=== PATIENT | male | born 1970 | race Caucasian/White ===

== ENCOUNTER 2017-10-26 16:39 | Inpatient (IN) | payer MEDICAID, OTHER ==
[~2017-10-26] VITALS: Ht 177.8 cm; Wt 100.0 kg
[~2017-10-26 16:39] MED LIST: AMLO2.5T2 PO; ENAL20TA75 PO; HYDR-3972 PO; TAMS0.4C32 PO
[2017-10-26] MEDS ORDERED: ketorolac trometh. 30mg/ml inj. IV ONE (16:45)
[2017-10-26] MEDS ORDERED: normal saline 1000ML IV soln IVB ONE (16:45)
[2017-10-26] MEDS ORDERED: ondansetron/PF 4mg/2ml inj IV ONE (16:45)
[2017-10-26 17:14] LABS: BASOPHILS % (AUTO) 0.2 % (0-1); EOSINOPHILS # (AUTO) 0.2 X10'3 (0-0.9); EOSINOPHILS % (AUTO) 1.7 % (0-6); HEMATOCRIT 44.2 % (42.0-52.0); HEMOGLOBIN 15.3 g/dl (14.0-17.9); LYMPHOCYTES # (AUTO) 0.9 X10'3 (1.1-4.8); LYMPHOCYTES % (AUTO) 7.4 % (21-51); MEAN CORPUSCULAR HEMOGLOBIN 31.5 PG (27.0-31.0); MEAN CORPUSCULAR HGB CONC 34.6 % (33.0-36.5); MEAN CORPUSCULAR VOLUME 90.9 FL (78-98); MEAN PLATELET VOLUME 7.8 FL (7.4-10.4); MONOCYTES # (AUTO) 0.6 X10'3 (0-0.9); MONOCYTES % (AUTO) 4.4 % (2-12); NEUTROPHILS # (AUTO) 10.9 X10'3 (1.8-7.7); NEUTROPHILS % (AUTO) 86.3 % (42-75); PLATELET COUNT 239 X10'3 (140-440); RED BLOOD COUNT 4.86 X10'6 (4.70-6.10); RED CELL DISTRIBUTION WIDTH 12.6 % (11.5-14.5); WHITE BLOOD COUNT 12.6 X10'3 (4.5-11.0)
[2017-10-26 17:28] LABS: ALBUMIN 3.8 G/DL (3.4-5.0); ALBUMIN/GLOBULIN RATIO 1.1 (1.1-1.5); ALKALINE PHOSPHATASE 94 IU/L (46-116); ANION GAP 8 (8-16); ASPARTATE AMINO TRANSFERASE 21 U/L (10-37); BILIRUBIN,TOTAL 0.5 MG/DL (0.1-1.0); BLOOD UREA NITROGEN 17 MG/DL (7-18); BUN/CREATININE RATIO 13.2 (5.4-32.0); CALCIUM 10.5 MG/DL (8.5-10.1); CHLORIDE 107 MMOL/L (99-107); CREATININE 1.29 MG/DL (0.60-1.10); GLUCOSE 132 MG/DL (70-104); LIPASE 217 U/L (73-393); POTASSIUM 3.9 MMOL/L (3.5-5.1); SODIUM 143 MMOL/L (135-145); TOTAL CARBON DIOXIDE 27.7 MMOL/L (24-32); TOTAL PROTEIN 7.4 G/DL (6.4-8.2); eGFR 59 ML/MIN
[2017-10-26 17:58] LABS: ALANINE AMINOTRANSFERASE 39 U/L (12-78)
[2017-10-26 18:14] LABS: CLARITY,URINE SLIGHTLY CLOUDY (Clear); COLOR,URINE YELLOW (Yellow); GLUCOSE, URINE NEGATIVE (Neg); KETONES,URINE NEGATIVE (Neg); LEUKOCYTE ESTERASE ,URINE SMALL (Neg); NITRITES, URINE NEGATIVE (Neg); OCCULT BLOOD,URINE MODERATE (Neg); PH,URINE 7.5 (4.8-8.0); PROTEIN,URINE TRACE mg/dl (Neg)
[2017-10-26 18:15] LABS: UA COLLECTION TYPE URINAL
[2017-10-26 18:23] LABS: BACTERIA,URINE FEW /HPF (Neg); SQUAMOUS EPITHELIAL CELL,UR FEW /LPF (FEW)
[2017-10-26 18:24] LABS: AMORPHOUS PHOSPHATES 1+
[2017-10-26] MEDS ORDERED: ENAL20TA75 PO (18:30)
[2017-10-26] MEDS ORDERED: AMLO2.5T2 PO (18:30)
[2017-10-26] MEDS ORDERED: ondansetron/PF 4mg/2ml inj IV PRN (21:00)
[2017-10-26] MEDS ORDERED: magnesium hydroxide 30ml (MOM) UD suspension PO PRN (21:00)
[2017-10-26] MEDS ORDERED: acetaminophen 650mg rectal suppository RC PRN (21:00)
[2017-10-26] MEDS ORDERED: bisacodyl 10mg suppository rectal RC PRN (21:00)
[2017-10-26] MEDS ORDERED: diphenhydrAMINE 50 mg/ml inj IV PRN (21:00)
[2017-10-26] MEDS ORDERED: mag hydrox/Alum hydrox/simeth 30ml oral suspension PO PRN (21:00)
[2017-10-26] MEDS ORDERED: HYDROcodone/acetaminophen 10/325mg tab PO PRN (21:00)
[2017-10-26] MEDS ORDERED: diphenhydrAMINE 25mg capsule PO PRN (21:00)
[2017-10-26] MEDS ORDERED: temazepam 15mg capsule PO PRN (21:00)
[2017-10-26] MEDS ORDERED: metoclopramide 5 mg/ml inj IV PRN (21:00)
[2017-10-26] MEDS ORDERED: acetaminophen 325mg tablet PO PRN ×2 (21:00)
[2017-10-26] MEDS ORDERED: HYDROmorphone inj. 0.5 MG/0.5 ML DISP.SYRIN IV PRN ×2 (21:00)
[2017-10-26] MEDS ORDERED: HYDROcodone/acetaminophen 5mg/325mg tablet PO PRN (21:00)
[2017-10-26] MEDS ORDERED: morphine 4 MG/ML inj SYRINge IV PRN ×2 (21:00)
[2017-10-26] MEDS ORDERED: hydrALAZINE 20mg/ml inj. IV PRN (21:05)
[2017-10-26] MEDS: normal saline 1000ml 1,000 ML IV SCH (21:09)
[2017-10-26 21:36] LABS: MAGNESIUM 2.1 MG/DL (1.5-2.4); PHOSPHORUS 2.9 MG/DL (2.3-4.5)
[2017-10-26] MEDS: CefTRIAXone/D5W-Rocephin 1gm 50 ML IV SCH (22:05)
[2017-10-26 23:07] LABS: PARTIAL THROMBOPLASTIN TIME 22 SECONDS (22-32)
[2017-10-27] VITALS (19 sets, daily range): BP systolic 128–167; BP diastolic 75–102
[2017-10-27 05:10] LABS: BASOPHILS % (AUTO) 0.3 % (0-1); EOSINOPHILS # (AUTO) 0.2 X10'3 (0-0.9); EOSINOPHILS % (AUTO) 1.7 % (0-6); HEMATOCRIT 41.5 % (42.0-52.0); HEMOGLOBIN 14.2 g/dl (14.0-17.9); LYMPHOCYTES # (AUTO) 1.8 X10'3 (1.1-4.8); LYMPHOCYTES % (AUTO) 16.7 % (21-51); MEAN CORPUSCULAR HGB CONC 34.3 % (33.0-36.5); MEAN CORPUSCULAR VOLUME 90.7 FL (78-98); MEAN PLATELET VOLUME 8.2 FL (7.4-10.4); MONOCYTES # (AUTO) 0.9 X10'3 (0-0.9); NEUTROPHILS # (AUTO) 7.8 X10'3 (1.8-7.7); NEUTROPHILS % (AUTO) 73.3 % (42-75); PLATELET COUNT 234 X10'3 (140-440); RED BLOOD COUNT 4.58 X10'6 (4.70-6.10); RED CELL DISTRIBUTION WIDTH 12.8 % (11.5-14.5); WHITE BLOOD COUNT 10.6 X10'3 (4.5-11.0)
[2017-10-27 05:26] LABS: ALANINE AMINOTRANSFERASE 32 U/L (12-78); ALBUMIN 3.4 G/DL (3.4-5.0); ALBUMIN/GLOBULIN RATIO 0.9 (1.1-1.5); ALKALINE PHOSPHATASE 85 IU/L (46-116); ANION GAP 7 (8-16); ASPARTATE AMINO TRANSFERASE 22 U/L (10-37); BILIRUBIN,TOTAL 0.5 MG/DL (0.1-1.0); BLOOD UREA NITROGEN 15 MG/DL (7-18); BUN/CREATININE RATIO 15.5 (5.4-32.0); CALCIUM 10.1 MG/DL (8.5-10.1); CHLORIDE 108 MMOL/L (99-107); CREATININE 0.97 MG/DL (0.60-1.10); GLUCOSE 92 MG/DL (70-104); POTASSIUM 3.7 MMOL/L (3.5-5.1); SODIUM 142 MMOL/L (135-145); TOTAL CARBON DIOXIDE 26.9 MMOL/L (24-32); eGFR 83 ML/MIN
[2017-10-27] MEDS: lisinopril 20mg tablet PO SCH (07:58)
[2017-10-27] MEDS: amLODIPine 2.5mg tablet PO SCH (07:58)
[2017-10-27] MEDS: docusate sod 100mg capsule PO SCH ×2 (07:58→20:21)
[2017-10-27] MEDS: CefTRIAXone/D5W-Rocephin 1gm 50 ML IV SCH ×2 (07:59→20:20)
[2017-10-27] MEDS: pantoprazole 40 MG vial IV SCH (08:00)
[2017-10-27] MEDS ORDERED: non-formulary drug (Enalapril Maleate* (Vasotec*) 1 TAB) PO SCH (08:00)
[2017-10-27] MEDS: normal saline 1000ml 1,000 ML IV SCH ×2 (11:13→20:22)
[2017-10-27] MEDS ORDERED: ringers solution, lacted 1,000 ML IV ONE (16:48)
[2017-10-27] MEDS ORDERED: iohexol 300 MG/1 ML 50ml polymer ONE (16:49)
[2017-10-27] MEDS ORDERED: meperidine/PF 25mg/ml syringe IV PRN (16:50)
[2017-10-27] MEDS ORDERED: proCHLORperazine 10 MG/2 ml inj IV PRN (16:50)
[2017-10-27] MEDS ORDERED: ondansetron/PF 4mg/2ml inj IV PRN (16:50)
[2017-10-27] MEDS ORDERED: hydrALAZINE 20mg/ml inj. IV PRN (16:50)
[2017-10-27] MEDS ORDERED: labetalol 20mg/4ml (5mg/ml) syringe IV PRN (16:50)
[2017-10-27] MEDS ORDERED: fentaNYL/PF 50MCG/1 ML 2ML syringe IV PRN ×2 (16:50)
[2017-10-27] MEDS ORDERED: proMETHazine 25mg rectal suppository RC PRN (16:50)
[2017-10-27] MEDS ORDERED: HYDROmorphone inj. 0.5 MG/0.5 ML DISP.SYRIN IV PRN ×2 (16:50)
[2017-10-27] MEDS ORDERED: acetaminophen 1,000mg/100ml IV 100 ML IV ONE (16:55)
[2017-10-27] MEDS ORDERED: sevoflurane 250ml liquid IH ONE (17:03)
[2017-10-27] MEDS ORDERED: midazolam 2 mg/2 ml injection ONE (17:05)
[2017-10-27] MEDS ORDERED: fentaNYL/PF 50MCG/1 ML 2ML syringe ONE (17:05)
[2017-10-27] MEDS ORDERED: propofol inj 40 ML IV ONE (17:58)
[2017-10-27] MEDS ORDERED: dexamethasone sod phosphate 4mg/ml inj. ONE (17:58)
[2017-10-27] MEDS ORDERED: LIDOcaine 2% (20mg/ml) 5ml vial ONE (17:58)
[2017-10-27] MEDS ORDERED: ondansetron/PF 4mg/2ml inj ONE (17:58)
[2017-10-27] MEDS: lactobacillus rhamnosus 10,000 MMU CELLS/CAPSULE PO SCH (20:21)
[2017-10-28] VITALS: BP 127/73
[2017-10-28 00:30] VITALS: BP 127/73
[2017-10-28] MEDS: normal saline 1000ml 1,000 ML IV SCH ×2 (02:12→09:04)
[2017-10-28 04:00] VITALS: BP 117/59
[2017-10-28 05:22] LABS: BASOPHILS % (AUTO) 0 % (0-1); EOSINOPHILS % (AUTO) 0 % (0-6); HEMATOCRIT 42.6 % (42.0-52.0); HEMOGLOBIN 14.5 g/dl (14.0-17.9); LYMPHOCYTES # (AUTO) 0.6 X10'3 (1.1-4.8); LYMPHOCYTES % (AUTO) 5.3 % (21-51); MEAN CORPUSCULAR HEMOGLOBIN 30.8 PG (27.0-31.0); MEAN CORPUSCULAR VOLUME 90.8 FL (78-98); MEAN PLATELET VOLUME 8.4 FL (7.4-10.4); MONOCYTES # (AUTO) 0.2 X10'3 (0-0.9); MONOCYTES % (AUTO) 2.3 % (2-12); NEUTROPHILS # (AUTO) 9.8 X10'3 (1.8-7.7); NEUTROPHILS % (AUTO) 92.4 % (42-75); PLATELET COUNT 246 X10'3 (140-440); RED BLOOD COUNT 4.69 X10'6 (4.70-6.10); RED CELL DISTRIBUTION WIDTH 12.7 % (11.5-14.5); WHITE BLOOD COUNT 10.6 X10'3 (4.5-11.0)
[2017-10-28 05:28] LABS: ALANINE AMINOTRANSFERASE 35 U/L (12-78); ALBUMIN 3.3 G/DL (3.4-5.0); ALBUMIN/GLOBULIN RATIO 0.9 (1.1-1.5); ALKALINE PHOSPHATASE 89 IU/L (46-116); ANION GAP 6 (8-16); ASPARTATE AMINO TRANSFERASE 18 U/L (10-37); BILIRUBIN,TOTAL 0.5 MG/DL (0.1-1.0); BLOOD UREA NITROGEN 15 MG/DL (7-18); CALCIUM 10.5 MG/DL (8.5-10.1); CHLORIDE 106 MMOL/L (99-107); CREATININE 1.15 MG/DL (0.60-1.10); GLUCOSE 141 MG/DL (70-104); POTASSIUM 4.2 MMOL/L (3.5-5.1); SODIUM 139 MMOL/L (135-145); TOTAL CARBON DIOXIDE 27.1 MMOL/L (24-32); eGFR 68 ML/MIN
[2017-10-28] MEDS: lisinopril 20mg tablet PO SCH (07:51)
[2017-10-28] MEDS: docusate sod 100mg capsule PO SCH (07:51)
[2017-10-28] MEDS: amLODIPine 2.5mg tablet PO SCH (07:51)
[2017-10-28] MEDS: lactobacillus rhamnosus 10,000 MMU CELLS/CAPSULE PO SCH (07:51)
[2017-10-28] MEDS: pantoprazole 40 MG vial IV SCH (07:52)
[2017-10-28] MEDS: CefTRIAXone/D5W-Rocephin 1gm 50 ML IV SCH (07:52)
[2017-10-28 08:00] VITALS: BP 128/69
[2017-10-28 11:00] VITALS: BP 140/77
== END 2017-10-28 12:44 | disposition home or self-care (01) | DRG 446 ==
LOC: ER 16:40 → ED HOLD 20:56 → SUR 3N 23:00
PROVIDERS: ADMIT Family Medicine; ATTEND Family Medicine
PROC: 0T768DZ Dilation of Right Ureter with Intraluminal Device, Via Natural or Artificial Opening Endoscopic (ICD-10-PCS; 2017-10-27)
PROC: 0TC68ZZ Extirpation of Matter from Right Ureter, Via Natural or Artificial Opening Endoscopic (ICD-10-PCS; principal; 2017-10-27 17:03)
DX: N13.2 Hydronephrosis with renal and ureteral calculous obstruction (principal); N17.9 Acute kidney failure, unspecified; I10 Essential (primary) hypertension; N12 Tubulo-interstitial nephritis, not specified as acute or chronic; G43.909 Migraine, unspecified, not intractable, without status migrainosus; K31.9 Disease of stomach and duodenum, unspecified; Z87.442 Personal history of urinary calculi; Z79.899 Other long term (current) drug therapy
CPT/HCPCS: 36415; 74176; 76000; 80053; 81001; 83605; 83690; 83735; 83880; 84100; 85025; 85610; 85730; 87040; 87070; 87088; 96361; 96374; 96375; 99285; A4402; C1769; C2625; C9113; J0131; J0696; J1100; J1885; J2001; J2250; J2405; J2704; J3010; J7030; J7120; Q9967

== ENCOUNTER 2018-09-07 09:01 | Inpatient (IN) | payer MEDICAID | END 2018-09-09 13:03 | disposition home or self-care (01) | LOC: ER 09:01 → SUR 3N 14:20 ==